=== PATIENT | female | born 1950 | race Caucasian/White ===

== ENCOUNTER 2016-04-20 11:53 | Day surgery (SDC) | payer MEDICARE, BC ==
[~2016-04-20 11:53] MED LIST: Lactated Ringers 1,000 ML IV SCH; Lidocaine 1%/Sod Bicarbonate in NS 8.4% 1 ML Syringe IV PRN; Sodium Chloride 0.9% 10 ML Syringe FLUSH PRN
--- NOTE | 2016-04-20 12:17 | PCM.PREANE ---
Preanesthetic Assessment - ANESTHESIA/TRANSFUSION/FAMILY HX Anesthesia/Transfusion History: No Prior Transfusion(s), Prior Anesthesia (no prob) Family History of Anesthesia Reaction: No - REVIEW OF SYSTEMS Constitutional: Reports: cold symptoms (mild) F[employer]NA[employer]DER: Reports: no symptoms Cardiovascular: Reports: no symptoms GI: Reports: no symptoms Other: Reports: depression, anxiety - PHYSICAL ASSESSMENT HR: 72 O2 Sat by Pulse Oximetry: 94 RR: 20 BP: 132/84 Temp: 98.9 F Height: 5 ft 7 in Weight: 102.058 kg NPO Status Date: 04/20/16 NPO Status Time: 04:00 ASA Class: 2 Mental Status: alert & oriented x3 Airway Class: Mallampati = 1 Dentition: Reports: normal dentition Thyro-Mental Finger Breadths: 3 Mouth Opening Finger Breadths: 3 ROM/Head Extension: full Respiratory Status: lungs clear to auscultation bilaterally Cardiovascular Status: regular rate & rhythm, normal S1, S2, no murmur, blood pressure WNL - ALLERGIES Allergies/Adverse Reactions: Allergies Allergy/AdvReac Type Severity Reaction Status Date / Time amoxicillin Allergy Hives Verified 04/19/16 14:25 cephalexin Allergy Cannot Verified 04/19/16 14:25 Remember ciprofloxacin Allergy Hives Verified 04/19/16 14:25 clavulanic acid Allergy Hives Verified 04/19/16 14:25 influenza virus vaccine, Allergy Other Verified 04/19/16 14:25 specific [influenza virus vacc,specific] penicillin G Allergy Hives Verified 04/19/16 14:25 Sulfa (Sulfonamide Allergy Hives Verified 04/19/16 14:25 Antibiotics) - BLOOD Blood Available: No - ANESTHESIA PLAN Preop Beta Ricardo: No Anesthesia Type Planned: MAC - ACKNOWLEDGEMENTS Pt an appropriate candidate for the planned anesthesia: Yes Alternatives and risks of anesthesia discussed w pt/guardian: Yes Pt/Guardian understands and agree with anesthesia plan: Yes PreAnesthesia Questionnaire Cardiovascular History: Reports: High cholesterol Respiratory History: Reports: Sleep apnea Psychiatric History: Reports: Anxiety, Depression Endocrine/Metabolic History: Reports: Obesity/BMI 30+ - Past Surgical History GI Surgical History: Reports: Colonoscopy Female Surgical History: Reports: section, Hysterectomy Musculoskeletal Surgical History: Reports: Arthroscopic knee, Knee replacement - SUBSTANCE USE Smoking Status *Q: Never Smoker Tobacco Use Within Last Twelve Months: No Second Hand Smoke Exposure: No Days Per Week of Alcohol Use: 0 (once a month) Recreational Drug Use History: No - HOME MEDS Home Medications: Home Meds Ascorbic Acid [Acerola C] 500 mg PO DAILY 04/19/16 [History] Aspirin 81 mg PO DAILY 04/19/16 [History] Cholecalciferol (Vitamin D3) [Vitamin D3] 1,000 unit PO DAILY 04/19/16 [History] Estrogens, Conjugated [Premarin Vaginal Crm] 30 gm TOP ASDIRECTED 04/19/16 [ History] Lactobacillus Reuteri [Biogaia] 1 tab PO DAILY 04/19/16 [History] Meloxicam [Mobic] 15 mg PO DAILY 04/19/16 [History] Multivitamins w-Iron/Ca/FA/Min [Thera M Plus] 1 tab PO DAILY 04/19/16 [History] Vitamin E 1,000 unit PO DAILY 04/19/16 [History] atorvaSTATin [Lipitor] 40 mg PO DAILY 04/19/16 [History] buPROPion [Wellbutrin SR] 150 mg PO DAILY 04/19/16 [History] - CURRENT (IN HOUSE) MEDS Current Meds: Current Medications Lactated Ringer's (Ringers, Lactated) 1,000 mls @ 125 mls/hr IV ASDIRECTED [facility] Stop: 04/20/16 23:00 Lidocaine/Sodium Bicarbonate (Buffered Lidocaine 1% In Ns 8.4%) 0.25 ml IV ONETIME PRN PRN Reason: Prior to IV Start Stop: 04/20/16 18:00 Sodium Chloride (Saline Flush) 10 ml FLUSH ASDIRECTED PRN PRN Reason: Keep Vein Open Stop: 04/20/16 18:00
[2016-04-20] MEDS ORDERED: Propofol 200 MG/20 ML SDV ONE ×2 (14:23→15:41)
[2016-04-20] MEDS ORDERED: Lidocaine 1% 2 ML SDV ONE ×2 (14:24)
--- NOTE | 2016-04-20 15:50 | PCM48HPAN ---
Post Anesthesia Note - EVALUATION WITHIN 48HRS OF ANESTHETIC Vital Signs in Normal Range: Yes Patient Participated in Evaluation: Yes Respiratory Function Stable: Yes Airway Patent: Yes Cardiovascular Function Stable: Yes Hydration Status Stable: Yes Pain Control Satisfactory: Yes Nausea and Vomiting Control Satisfactory: Yes Mental Status Recovered: Yes
--- NOTE | 2016-04-20 15:54 | PCM.OPNOTE ---
- General Post-Op/Procedure Note Date of Surgery/Procedure: 04/20/16 Operative Procedure(s): 1. Screening colonoscopy with cold forceps polypectomy. 2. Hemorrhoidal banding Pre Op Diagnosis: Screening colonoscopy, average risk Post-Op Diagnosis: Splenic flexure colon polyp, Grade 2 internal hemorrhoids Anesthesia Technique: MAC Primary Surgeon: Kari Holbrook Anesthesia Provider: Kailee Watkins Pathology: 1. Splenic flexure colon polyp Fluid Replacement, Intraop: 600 (mL crystalloid ) EBL in mLs: 1 Complications: None Condition: Good Free Text/Narrative:: INDICATION FOR PROCEDURE: The patient is a 66-year-old woman who was referred to me by UMAIR Sanchez for evaluation for colonoscopy. Last colonoscopy was in 2006 and was unremarkable. She is due for average risk screening. She also had some concerns about hemorrhoids. Performing a colonoscopy with possible hemorrhoidal banding and the associated risks of the procedures had been discussed with the patient. The patient found these risks acceptable and agreed to proceed. DESCRIPTION OF PROCEDURE: The patient was taken to the operating room and placed in the left lateral decubitus position. A digital rectal exam was performed which was unremarkable. An adult Olympus colonoscope was inserted into the rectum and guided under direct visualization to the appendiceal orifice and ileocecal valve. The scope was then slowly withdrawn through the colon. The quality of the prep was good. A small polyp was noted at the splenic flexure and was removed using cold forceps biopsy. There was no evidence of angiodysplasias or diverticulum. The scope was withdrawn into the rectum and retroflexed. Grade 2 internal hemorrhoids were noted, hemorrhoidal banding was performed without difficulty after the colonoscopy was completed. The scope was straightened, the colon was desufflated, and the scope was withdrawn. The patient was awakened from sedation and transferred to the recovery room in stable condition having tolerated the procedure well. POSTOPERATIVE PLAN: I discussed with the patient my intraoperative findings and recommendations. The patient will follow up in approximately 7-10 days to discuss pathology and how their symptoms are progressing. She has been told to expect some bleeding for the next week or so. The patient is to call with any worsening of symptoms or questions prior to the appointment.
[2016-04-20 16:29] VITALS: BP 154/69
== END 2016-04-20 16:40 | disposition home or self-care (01) ==
LOC: JD.SDS 11:53
PROVIDERS: ATTEND Surgery
DX: Z12.11 Encounter for screening for malignant neoplasm of colon (principal); K64.8 Other hemorrhoids; K63.5 Polyp of colon; Z88.0 Allergy status to penicillin; Z88.1 Allergy status to other antibiotic agents; Z88.2 Allergy status to sulfonamides; Z88.8 Allergy status to other drugs, medicaments and biological substances; I10 Essential (primary) hypertension; E78.5 Hyperlipidemia, unspecified; M19.90 Unspecified osteoarthritis, unspecified site; F32.9 Major depressive disorder, single episode, unspecified; F41.9 Anxiety disorder, unspecified; G47.30 Sleep apnea, unspecified; Z96.651 Presence of right artificial knee joint; Z79.82 Long term (current) use of aspirin; Z79.899 Other long term (current) drug therapy
CPT/HCPCS: 45380; 45398; 88305; J7120; 00810; J2704

== ENCOUNTER 2017-08-08 10:42 | Day surgery (SDC) | payer MEDICARE, BC ==
[~2017-08-08 10:42] MED LIST changes: +Cefuroxime 10 MG/ML SYRINGE EYERT SCH; -Lactated Ringers 1,000 ML IV SCH; +Lidocaine 1% PF 2 ML SDV INJECT SCH; -Lidocaine 1%/Sod Bicarbonate in NS 8.4% 1 ML Syringe IV PRN; +Pilocarpine 4% Ophth Soln 15 ML Bot EYERT SCH; +Polymyxin B/Trimethoprim 10 ML Bottle EYERT SCH; -Sodium Chloride 0.9% 10 ML Syringe FLUSH PRN
[2017-08-08] MEDS: Tobramycin 0.3% Ophth Drops 5 ML Bottle EYERT SCH ×3 (11:28→13:20)
[2017-08-08] MEDS: Brimonidine 0.2% Ophth Soln 5 ML Bottle EYERT SCH ×3 (11:33→13:20)
[2017-08-08] MEDS: Phenylephrine 2.5% Ophth Soln 2 ML Bot EYERT SCH ×5 (11:38→13:02)
--- NOTE | 2017-08-08 11:38 | PCM.PREANE ---
Preanesthetic Assessment - Procedure Proposed Procedure: cataract right - Anesthesia/Transfusion/Family Hx Anesthesia History: Prior Anesthesia Without Reaction Family History of Anesthesia Reaction: No Transfusion History: No Prior Transfusion(s) - Review of Systems General: No Symptoms Pulmonary: No Symptoms Cardiovascular: No Symptoms Gastrointestinal: Constipation (monday- better now) Neurological: No Symptoms Other: Reports: Depression - Physical Assessment NPO Status Date: 08/07/17 NPO Status Time: 22:00 O2 Sat by Pulse Oximetry: 96 Respiratory Rate: 16 Vital Signs: Last Vital Signs Temp 98.2 F 08/08/17 11:20 Pulse 74 08/08/17 11:20 Resp 16 08/08/17 11:20 BP 147/74 H 08/08/17 11:20 Pulse Ox 96 08/08/17 11:20 Height: 5 ft 7 in Weight: 107.955 kg ASA Class: 2 Mental Status: Alert & Oriented x3 Airway Class: Mallampati = 1 Dentition: Reports: Normal Dentition Thyro-Mental Finger Breadths: 3 Mouth Opening Finger Breadths: 3 ROM/Head Extension: Full Lungs: Clear to Auscultation, Normal Respiratory Effort Cardiovascular: Regular Rate, Regular Rhythm - Allergies Allergies/Adverse Reactions: Allergies Allergy/AdvReac Type Severity Reaction Status Date / Time amoxicillin Allergy Hives Verified 08/07/17 10:26 cephalexin Allergy Cannot Verified 08/07/17 10:26 Remember ciprofloxacin Allergy Hives Verified 08/07/17 10:26 clavulanic acid Allergy Hives Verified 08/07/17 10:26 influenza virus vaccine, Allergy Other Verified 08/07/17 10:26 specific [influenza virus vacc,specific] penicillin G Allergy Hives Verified 08/07/17 10:26 Sulfa (Sulfonamide Allergy Hives Verified 08/07/17 10:26 Antibiotics) - Blood Blood Available: No - Acknowledgements Anesthesia Type Planned: MAC Pt an Appropriate Candidate for the Planned Anesthesia: Yes Alternatives and Risks of Anesthesia Discussed w Pt/Guardian: Yes Pt/Guardian Understands and Agrees with Anesthesia Plan: Yes PreAnesthesia Questionnaire HEENT History: Reports: Impaired Vision Cardiovascular History: Reports: High Cholesterol Respiratory History: Reports: Sleep Apnea Gastrointestinal History: Reports: None Musculoskeletal History: Reports: Arthritis Psychiatric History: Reports: Anxiety, Depression Endocrine/Metabolic History: Reports: Obesity/BMI 30+ Oncologic (Cancer) History: Reports: None - Past Surgical History Female Surgical History: Reports: Section, Hysterectomy Musculoskeletal Surgical History: Reports: Arthroscopic Knee, Knee Replacement - SUBSTANCE USE Smoking Status *Q: Never Smoker Tobacco Use Within Last Twelve Months: No Second Hand Smoke Exposure: No Days Per Week of Alcohol Use: 1 (rare) Recreational Drug Use History: No - HOME MEDS Home Medications: Home Meds Ascorbic Acid [Acerola C] 1,000 mg PO DAILY 04/19/16 [History] Aspirin 81 mg PO DAILY 04/19/16 [History] Cholecalciferol (Vitamin D3) [Vitamin D3] 4,000 unit PO DAILY 04/19/16 [History] Meloxicam [Mobic] 15 mg PO DAILY 04/19/16 [History] Multivitamins w-Iron/Ca/FA/Min [Thera M Plus] 1 tab PO DAILY 04/19/16 [History] atorvaSTATin [Lipitor] 40 mg PO DAILY 04/19/16 [History] buPROPion [Wellbutrin SR] 150 mg PO DAILY 04/19/16 [History] Calcium Carbonate/Vitamin D3 [Calcium 500 + Vit D 400] 1 tab PO DAILY 08/07/17 [ History] Cranberry 400 mg PO DAILY 08/07/17 [History] - CURRENT (IN HOUSE) MEDS Current Meds: Current Medications Brimonidine Tartrate (Alphagan 0.2% Ophth Soln) 0 ml EYERT ASDIRECTED [facility] Stop: 08/08/17 19:00 Cefuroxime Sodium (Zinacef) 0 mg EYERT ASDIRECTED [facility] Stop: 08/08/17 19:00 Lidocaine HCl (Xylocaine-Mpf 1%) 0 ml INJECT ASDIRECTED [facility] Stop: 08/08/17 19:00 Phenylephrine HCl (Marvin-Synephrine 2.5% Ophth Soln) 0 ml EYERT ASDIRECTED [facility] Stop: 08/08/17 19:00 Pilocarpine HCl (Pilocar 4% Ophth Soln) 0 ml EYERT ASDIRECTED [facility] Stop: 08/08/17 19:00 Tetracaine HCl (Tetracaine 0.5% Steri-Unit Archana) 0 ml EYERT ASDIRECTED [facility] Stop: 08/08/17 19:00 Tobramycin (Tobramycin 0.3% Ophth Soln) 0 ml EYERT ASDIRECTED [facility] Stop: 08/08/17 19:00 Last Admin: 08/08/17 11:28 Dose: 1 drop Tropicamide (Mydriacyl 1% Ophth Soln) 0 ml EYERT ASDIRECTED [facility] Stop: 08/08/17 19:00 Discontinued Medications Polymyxin/Trimethoprim Sulfate (Polytrim Ophth Soln) 0 ml EYERT ASDIRECTED [facility]
[2017-08-08] MEDS: Tropicamide 1% Ophth Soln 3 ML Bottle EYERT SCH ×4 (11:47→12:45)
[2017-08-08] MEDS: Tetracaine HCl/PF 0.5% 4 ML Bottle EYERT SCH ×2 (12:55→13:08)
--- NOTE | 2017-08-08 13:22 | PCM48HPAN ---
Post Anesthesia Note - EVALUATION WITHIN 48HRS OF ANESTHETIC Vital Signs in Normal Range: Yes Patient Participated in Evaluation: Yes Respiratory Function Stable: Yes Airway Patent: Yes Cardiovascular Function Stable: Yes Hydration Status Stable: Yes Pain Control Satisfactory: Yes Nausea and Vomiting Control Satisfactory: Yes Mental Status Recovered: Yes Pulse Rate: 74 SaO2: 97 Resp Rate: 16 Temperature: 36 C Blood Pressure: 128/62
[2017-08-08 13:34] VITALS: BP 138/86
== END 2017-08-08 13:31 | disposition home or self-care (01) ==
LOC: JD.SDS 10:42
PROVIDERS: ATTEND Ophthalmology
DX: H25.813 Combined forms of age-related cataract, bilateral (principal); I10 Essential (primary) hypertension; J45.909 Unspecified asthma, uncomplicated; E66.9 Obesity, unspecified; Z68.37 Body mass index [BMI] 37.0-37.9, adult; E78.00 Pure hypercholesterolemia, unspecified; H35.371 Puckering of macula, right eye; H02.834 Dermatochalasis of left upper eyelid; H16.103 Unspecified superficial keratitis, bilateral; F32.9 Major depressive disorder, single episode, unspecified; F41.9 Anxiety disorder, unspecified; Z79.82 Long term (current) use of aspirin; Z79.899 Other long term (current) drug therapy; Z88.0 Allergy status to penicillin; Z88.1 Allergy status to other antibiotic agents; Z88.7 Allergy status to serum and vaccine; Z88.2 Allergy status to sulfonamides
CPT/HCPCS: 66982; A9270; C1780; J2001

== ENCOUNTER 2017-09-07 07:29 | Day surgery (SDC) | payer MEDICARE, BC ==
[~2017-09-07 07:29] MED LIST changes: +Cefuroxime 10 MG/ML SYRINGE EYELF SCH; -Cefuroxime 10 MG/ML SYRINGE EYERT SCH; +Pilocarpine 4% Ophth Soln 15 ML Bot EYELF SCH; -Pilocarpine 4% Ophth Soln 15 ML Bot EYERT SCH; -Polymyxin B/Trimethoprim 10 ML Bottle EYERT SCH
--- NOTE | 2017-09-07 07:50 | PCM.PREANE ---
Preanesthetic Assessment - Anesthesia/Transfusion/Family Hx Anesthesia History: Prior Anesthesia Without Reaction Transfusion History: No Prior Transfusion(s) - Review of Systems General: No Symptoms Pulmonary: No Symptoms (denies) Cardiovascular: No Symptoms, Other (denies) Gastrointestinal: No Symptoms Neurological: No Symptoms Other: Reports: None - Physical Assessment NPO Status Date: 09/06/17 NPO Status Time: 22:30 Pulse: 65 O2 Sat by Pulse Oximetry: 99 Respiratory Rate: 16 Blood Pressure: 147/61 Weight: 106.594 kg ASA Class: 2 Mental Status: Alert & Oriented x3 Dentition: Reports: Normal Dentition, Dentures Thyro-Mental Finger Breadths: 3 Mouth Opening Finger Breadths: 3 ROM/Head Extension: Full Lungs: Clear to Auscultation, Normal Respiratory Effort Cardiovascular: Regular Rate, Regular Rhythm - Allergies Allergies/Adverse Reactions: Allergies Allergy/AdvReac Type Severity Reaction Status Date / Time amoxicillin Allergy Hives Verified 09/06/17 10:02 cephalexin Allergy Cannot Verified 09/06/17 10:02 Remember ciprofloxacin Allergy Hives Verified 09/06/17 10:02 clavulanic acid Allergy Hives Verified 09/06/17 10:02 influenza virus vaccine, Allergy Other Verified 09/06/17 10:02 specific [influenza virus vacc,specific] penicillin G Allergy Hives Verified 09/06/17 10:02 Sulfa (Sulfonamide Allergy Hives Verified 09/06/17 10:02 Antibiotics) - Blood Blood Available: No Product(s) Available: None - Anesthesia Plan Pre-Op Medication Ordered: None - Acknowledgements Anesthesia Type Planned: MAC Pt an Appropriate Candidate for the Planned Anesthesia: Yes Alternatives and Risks of Anesthesia Discussed w Pt/Guardian: Yes Pt/Guardian Understands and Agrees with Anesthesia Plan: Yes PreAnesthesia Questionnaire HEENT History: Reports: Impaired Vision Cardiovascular History: Reports: High Cholesterol Respiratory History: Reports: Sleep Apnea Gastrointestinal History: Reports: None Musculoskeletal History: Reports: Arthritis Psychiatric History: Reports: Anxiety, Depression Endocrine/Metabolic History: Reports: Obesity/BMI 30+ Oncologic (Cancer) History: Reports: None - Past Surgical History Female Surgical History: Reports: Section, Hysterectomy Musculoskeletal Surgical History: Reports: Arthroscopic Knee, Knee Replacement - HOME MEDS Home Medications: Home Meds Ascorbic Acid [Acerola C] 1,000 mg PO DAILY 04/19/16 [History] Aspirin 81 mg PO DAILY 04/19/16 [History] Cholecalciferol (Vitamin D3) [Vitamin D3] 4,000 unit PO DAILY 04/19/16 [History] Meloxicam [Mobic] 15 mg PO DAILY 04/19/16 [History] Multivitamins w-Iron/Ca/FA/Min [Thera M Plus] 1 tab PO DAILY 04/19/16 [History] atorvaSTATin [Lipitor] 40 mg PO DAILY 04/19/16 [History] buPROPion [Wellbutrin SR] 150 mg PO DAILY 04/19/16 [History] Calcium Carbonate/Vitamin D3 [Calcium 500 + Vit D 400] 1 tab PO DAILY 08/07/17 [ History] Cranberry 400 mg PO DAILY 08/07/17 [History] - CURRENT (IN HOUSE) MEDS Current Meds: Current Medications Brimonidine Tartrate (Alphagan 0.2% Ophth Soln) 0 ml EYELF ASDIRECTED [facility] Stop: 09/07/17 18:00 Cefuroxime Sodium (Zinacef) 0 mg EYELF ASDIRECTED [facility] Stop: 09/07/17 18:00 Lidocaine HCl (Xylocaine-Mpf 1%) 0 ml INJECT ASDIRECTED [facility] Stop: 09/07/17 18:00 Phenylephrine HCl (Marvin-Synephrine 2.5% Ophth Soln) 0 ml EYELF ASDIRECTED [facility] Stop: 09/07/17 18:00 Pilocarpine HCl (Pilocar 4% Ophth Soln) 0 ml EYELF ASDIRECTED [facility] Stop: 09/07/17 18:00 Tetracaine HCl (Tetracaine 0.5% Steri-Unit Archana) 0 ml EYELF ASDIRECTED [facility] Stop: 09/07/17 18:00 Tobramycin (Tobramycin 0.3% Ophth Soln) 0 ml EYELF ASDIRECTED [facility] Stop: 09/07/17 18:00 Tropicamide (Mydriacyl 1% Ophth Soln) 0 ml EYELF ASDIRECTED [facility] Stop: 09/07/17 18:00
[2017-09-07] MEDS: Tobramycin 0.3% Ophth Drops 5 ML Bottle EYELF SCH ×3 (08:20→10:15)
[2017-09-07] MEDS: Brimonidine 0.2% Ophth Soln 5 ML Bottle EYELF SCH ×3 (08:26→10:15)
[2017-09-07] MEDS: Phenylephrine 2.5% Ophth Soln 2 ML Bot EYELF SCH ×6 (08:32→09:57)
[2017-09-07] MEDS: Tropicamide 1% Ophth Soln 15 ML Bottle EYELF SCH ×4 (08:37→09:08)
[2017-09-07] MEDS: Tetracaine HCl/PF 0.5% 4 ML Bottle EYELF SCH ×2 (09:45→10:05)
--- NOTE | 2017-09-07 10:17 | PCM48HPAN ---
Post Anesthesia Note - EVALUATION WITHIN 48HRS OF ANESTHETIC Vital Signs in Normal Range: Yes Patient Participated in Evaluation: Yes Respiratory Function Stable: Yes Airway Patent: Yes Cardiovascular Function Stable: Yes Hydration Status Stable: Yes Pain Control Satisfactory: Yes Nausea and Vomiting Control Satisfactory: Yes Mental Status Recovered: Yes Pulse Rate: 561 SaO2: 0 Resp Rate: 16 Temperature: 36.8 C Blood Pressure: 128/65
[2017-09-07 10:29] VITALS: BP 134/76
== END 2017-09-07 10:24 | disposition home or self-care (01) ==
LOC: JD.SDS 07:29
PROVIDERS: ATTEND Ophthalmology
DX: H25.812 Combined forms of age-related cataract, left eye (principal); H35.371 Puckering of macula, right eye; H16.103 Unspecified superficial keratitis, bilateral; H16.223 Keratoconjunctivitis sicca, not specified as Sjogren's, bilateral; H02.834 Dermatochalasis of left upper eyelid; H02.831 Dermatochalasis of right upper eyelid; I10 Essential (primary) hypertension; E78.00 Pure hypercholesterolemia, unspecified; Z79.82 Long term (current) use of aspirin; Z79.899 Other long term (current) drug therapy; Z98.41 Cataract extraction status, right eye; Z96.1 Presence of intraocular lens
CPT/HCPCS: 66984; A9270; C1780; J2001

== ENCOUNTER 2019-06-06 06:15 | Emergency (ER) | payer MEDICARE, BC ==
--- NOTE | 2019-06-06 06:35 | EDM.PDOC ---
<SandstoneMarvin - Last Filed: 06/06/19 06:43> ED HPI GENERAL MEDICAL PROBLEM - General Chief Complaint: General Stated Complaint: [facility] Time Seen by Provider: 06/06/19 06:22 Source of Information: Reports: Patient, EMS History Limitations: Reports: Other (Patient is suboptimal historian.) - History of Present Illness INITIAL COMMENTS - FREE TEXT/NARRATIVE: TRIAGE NOTE -- pt presents with c/o a sore throat and a possible seizure this morning. report recieved that patient had seizure like activity with unresponsiveness and confusion for 15 minutes. upon EMS arrival patient is disorientated and confused, upon arrival to the ER patient is alert and orientated but unsure of preceding events. has some blood around her tongue. As above. Patient's noted her to be confused. No history suggestive of tonic-clonic movements. Patient poorly responsive for period of time perhaps 15 minutes. EMS noted confusion which cleared over the next 10 or 15 minutes. Apparently baseline on arrival to ER. No readily identified risk factors. No history of seizures. No intervention prior to arrival other than supportive care by EMS. Throat Pain Score (Numeric/FACES): 8 - Related Data Allergies Allergy/AdvReac Type Severity Reaction Status Date / Time amoxicillin Allergy Hives Verified 09/06/17 10:02 cephalexin Allergy Cannot Verified 09/06/17 10:02 Remember ciprofloxacin Allergy Hives Verified 09/06/17 10:02 clavulanic acid Allergy Hives Verified 09/06/17 10:02 influenza virus vaccine, Allergy Other Verified 09/06/17 10:02 specific [influenza virus vacc,specific] penicillin G Allergy Hives Verified 09/06/17 10:02 Sulfa (Sulfonamide Allergy Hives Verified 09/06/17 10:02 Antibiotics) Home Meds: Home Meds Ascorbic Acid [Acerola C] 1,000 mg PO DAILY 04/19/16 [History] Aspirin 81 mg PO DAILY 04/19/16 [History] Cholecalciferol (Vitamin D3) [Vitamin D3] 4,000 unit PO DAILY 04/19/16 [History] Multivitamins w-Iron/Ca/FA/Min [Thera M Plus] 1 tab PO DAILY 04/19/16 [History] atorvaSTATin [Lipitor] 40 mg PO DAILY 04/19/16 [History] buPROPion [Wellbutrin SR] 150 mg PO DAILY 04/19/16 [History] Calcium Carbonate/Vitamin D3 [Calcium 500 + Vit D 400] 1 tab PO DAILY 08/07/17 [ History] Cranberry 400 mg PO DAILY 08/07/17 [History] Mirabegron [Myrbetriq] 25 mg PO DAILY 06/06/19 [History] levETIRAcetam [Keppra] 500 mg PO BID #60 tab 06/06/19 [Rx] Past Medical History HEENT History: Reports: Impaired Vision Cardiovascular History: Reports: High Cholesterol Respiratory History: Reports: Sleep Apnea Gastrointestinal History: Reports: None Musculoskeletal History: Reports: Arthritis Psychiatric History: Reports: Anxiety, Depression Endocrine/Metabolic History: Reports: Obesity/BMI 30+ Oncologic (Cancer) History: Reports: None - Past Surgical History Female Surgical History: Reports: Section, Hysterectomy Musculoskeletal Surgical History: Reports: Arthroscopic Knee, Knee Replacement Social & Family History - Tobacco Use Smoking Status *Q: Never Smoker ED ROS GENERAL - Review of Systems Review Of Systems: Comprehensive ROS is negative, except as noted in HPI. ED EXAM, GENERAL - Physical Exam Exam: See Below Exam Limited By: No Limitations General Appearance: Alert, WD/WN, No Apparent Distress Eye Exam: Bilateral Eye: EOMI, PERRL Ears: Normal External Exam Nose: Normal Inspection Throat/Mouth: Normal Voice, Other (Array of apparent small bite rust right side of tongue indeterminate age. Mild erythema of posterior pharynx.) Head: Atraumatic Neck: Normal Inspection, Supple Respiratory/Chest: No Respiratory Distress, Lungs Clear, Normal Breath Sounds Cardiovascular: Regular Rate, Rhythm GI/Abdominal: Soft, Non-Tender Back Exam: Normal Inspection Extremities: Normal Inspection, Non-Tender Neurological: Alert, Oriented, Normal Cognition, No Motor/Sensory Deficits Psychiatric: Normal Affect Skin Exam: Warm, Dry Course - Vital Signs Last Recorded V/S: Last Vital Signs Temp 98.6 F 06/06/19 06:24 Pulse 76 06/06/19 06:24 Resp 16 06/06/19 06:24 BP 138/93 H 06/06/19 06:24 Pulse Ox 99 06/06/19 06:24 - Orders/Labs/Meds Orders: Active Orders 24 hr Category Date Time Status EKG Documentation Completion [RC] STAT Care 06/06/19 06:25 Active CULTURE STREP A CONFIRMATION [RM] Stat Lab 06/06/19 06:47 Results CULTURE URINE [RM] Stat Lab 06/06/19 06:41 Received Rapid Strep w/culture conf [STREP SCRN A RAPID W CULT Lab 06/06/19 06:47 Results CONF] [RM] Stat Sodium Chloride 0.9% [Saline Flush] Med 06/06/19 08:25 Active 10 ml FLUSH ONETIME PRN Sodium Chloride 0.9% [Saline Flush] Med 06/06/19 11:08 Active 10 ml FLUSH ONETIME PRN Medication Orders Sodium Chloride (Saline Flush) 10 ml FLUSH ONETIME PRN PRN Reason: IV FLUSH Last Admin: 06/06/19 08:51 Dose: 10 ml Sodium Chloride (Saline Flush) 10 ml FLUSH ONETIME PRN PRN Reason: Keep Vein Open Last Admin: 06/06/19 12:09 Dose: 10 ml Labs: Laboratory Tests 06/06/19 06/06/19 06/06/19 Range/Units 06:41 06:41 06:54 WBC 7.19 (3.98-10.04) K/mm3 RBC 4.71 (3.98-5.22) M/mm3 Hgb 14.2 (11.2-15.7) gm/dl Hct 45.0 H (34.1-44.9) % MCV 95.5 H (79.4-94.8) fl MCH 30.1 (25.6-32.2) pg MCHC 31.6 L (32.2-35.5) g/dl RDW Std Deviation 44.1 (36.4-46.3) fL Plt Count 246 (182-369) K/mm3 MPV 9.7 (9.4-12.3) fl Neutrophils % (Manual) 72 H (40-60) % Band Neutrophils % 0 (0-10) % Lymphocytes % (Manual) 18 L (20-40) % Atypical Lymphs % 0 % Monocytes % (Manual) 8 (2-10) % Eosinophils % (Manual) 2 (0.7-5.8) % Basophils % (Manual) 0 L (0.1-1.2) Platelet Estimate Adequate RBC Morph Comment Normal Sodium (136-145) mEq/L Potassium (3.5-5.1) mEq/L Chloride (98-107) mEq/L Carbon Dioxide (21-32) mEq/L Anion Gap (5-15) BUN (7-18) mg/dL Creatinine (0.55-1.02) mg/dL Est Cr Clr Drug Dosing Estimated GFR (MDRD) (>60) mL/min BUN/Creatinine Ratio (14-18) Glucose (80-115) mg/dL Calcium (8.5-10.1) mg/dL Magnesium (1.8-2.4) mg/dl Total Bilirubin (0.2-1.0) mg/dL AST (15-37) U/L ALT (14-59) U/L Alkaline Phosphatase (46-116) U/L Troponin I (0.00-0.056) ng/mL C-Reactive Protein (<1.0) mg/dL Total Protein (6.4-8.2) g/dl Albumin (3.4-5.0) g/dl Globulin gm/dL Albumin/Globulin Ratio (1-2) Urine Color Yellow (Yellow) Urine Appearance Clear (Clear) Urine pH 6.0 (5.0-8.0) Ur Specific [place] > or = 1.030 (1.005-1.030) Urine Protein Trace H (Negative) Urine Glucose (UA) Negative (Negative) Urine Ketones Negative (Negative) Urine Occult Blood Negative (Negative) Urine Nitrite Negative (Negative) Urine Bilirubin Negative (Negative) Urine Urobilinogen 0.2 (0.2-1.0) Ur Leukocyte Esterase 1+ H (Negative) Urine RBC 0-5 (0-5) /hpf Urine WBC 5-10 H (0-5) /hpf Ur Squamous Epith Cells 0-5 (0-5) /hpf Urine Bacteria Few (FEW) /hpf Urine Mucus Not seen (FEW) /hpf Urine Opiates Screen Negative (HOXKQY=305) Ur Buprenorphine Scrn Negative (CUTOFF=10) Ur Oxycodone Screen Negative (FLU5JQ=848) Urine Methadone Screen Negative (COTQIQ=978) Ur Propoxyphene Screen Negative (CDXGVJ=995) Ur Barbiturates Screen Negative (ORKGWG=823) Ur Tricyclics Screen Negative (SVOBMZ=912) Ur Phencyclidine Scrn Negative (CUTOFF=25) Ur Amphetamine Screen Negative (UFZFUT=817) U Methamphetamines Scrn Negative (TIFWAO=028) U Benzodiazepines Scrn Negative (IMDJNY=175) U Cocaine Metab Screen Negative (SMUNQN=880) U Marijuana (THC) Screen Negative (CUTOFF=50) Ethyl Alcohol (0.00) gm% 06/06/19 Range/Units 06:54 WBC (3.98-10.04) K/mm3 RBC (3.98-5.22) M/mm3 Hgb (11.2-15.7) gm/dl Hct (34.1-44.9) % MCV (79.4-94.8) fl MCH (25.6-32.2) pg MCHC (32.2-35.5) g/dl RDW Std Deviation (36.4-46.3) fL Plt Count (182-369) K/mm3 MPV (9.4-12.3) fl Neutrophils % (Manual) (40-60) % Band Neutrophils % (0-10) % Lymphocytes % (Manual) (20-40) % Atypical Lymphs % % Monocytes % (Manual) (2-10) % Eosinophils % (Manual) (0.7-5.8) % Basophils % (Manual) (0.1-1.2) Platelet Estimate RBC Morph Comment Sodium 144 (136-145) mEq/L Potassium 3.9 (3.5-5.1) mEq/L Chloride 106 (98-107) mEq/L Carbon Dioxide 29 (21-32) mEq/L Anion Gap 12.9 (5-15) BUN 23 H (7-18) mg/dL Creatinine 0.9 (0.55-1.02) mg/dL Est Cr Clr Drug Dosing TNP Estimated GFR (MDRD) > 60 (>60) mL/min BUN/Creatinine Ratio 25.6 H (14-18) Glucose 95 (80-115) mg/dL Calcium 9.6 (8.5-10.1) mg/dL Magnesium 2.1 (1.8-2.4) mg/dl Total Bilirubin 0.5 (0.2-1.0) mg/dL AST 21 (15-37) U/L ALT 21 (14-59) U/L Alkaline Phosphatase 88 (46-116) U/L Troponin I < 0.017 (0.00-0.056) ng/mL C-Reactive Protein <0.2 (<1.0) mg/dL Total Protein 7.4 (6.4-8.2) g/dl Albumin 3.7 (3.4-5.0) g/dl Globulin 3.7 gm/dL Albumin/Globulin Ratio 1.0 (1-2) Urine Color (Yellow) Urine Appearance (Clear) Urine pH (5.0-8.0) Ur Specific [place] (1.005-1.030) Urine Protein (Negative) Urine Glucose (UA) (Negative) Urine Ketones (Negative) Urine Occult Blood (Negative) Urine Nitrite (Negative) Urine Bilirubin (Negative) Urine Urobilinogen (0.2-1.0) Ur Leukocyte Esterase (Negative) Urine RBC (0-5) /hpf Urine WBC (0-5) /hpf Ur Squamous Epith Cells (0-5) /hpf Urine Bacteria (FEW) /hpf Urine Mucus (FEW) /hpf Urine Opiates Screen (NRHIVR=141) Ur Buprenorphine Scrn (CUTOFF=10) Ur Oxycodone Screen (GFU3ZI=070) Urine Methadone Screen (MVOAJI=899) Ur Propoxyphene Screen (KSTYOI=308) Ur Barbiturates Screen (SQSREU=228) Ur Tricyclics Screen (FKTUKJ=093) Ur Phencyclidine Scrn (CUTOFF=25) Ur Amphetamine Screen (MMYUEO=847) U Methamphetamines Scrn (AJMLXT=825) U Benzodiazepines Scrn (BEHLLN=959) U Cocaine Metab Screen (IZXUUY=549) U Marijuana (THC) Screen (CUTOFF=50) Ethyl Alcohol 0.01 (0.00) gm% Meds: Medications Generic Name Dose Route Start Last Admin Trade Name Freq PRN Reason Stop Dose Admin Sodium Chloride 10 ml 06/06/19 08:25 06/06/19 08:51 Saline Flush FLUSH 10 ml ONETIME PRN Administration IV FLUSH Sodium Chloride 10 ml 06/06/19 11:08 06/06/19 12:09 Saline Flush FLUSH 10 ml ONETIME PRN Administration Keep Vein Open Discontinued Medications Generic Name Dose Route Start Last Admin Trade Name Freq PRN Reason Stop Dose Admin Gadobenate Dimeglumine 19 ml 06/06/19 11:08 06/06/19 12:09 Multihance IVPUSH 06/06/19 11:09 19 ml ONETIME ONE Administration Levetiracetam 2,000 mg/ Sodium 120 mls @ 400 mls/hr 06/06/19 10:52 06/06/19 12:29 Chloride IV 06/06/19 11:06 400 mls/hr ONETIME ONE Administration Iopamidol 100 ml 06/06/19 08:25 06/06/19 08:51 Isovue-300 (61%) IVPUSH 06/06/19 08:26 100 ml ONETIME ONE Administration Methylprednisolone Sodium Succinate 125 mg 06/06/19 10:27 06/06/19 12:27 Solu-Medrol IVPUSH 06/06/19 10:28 125 mg ONETIME ONE Administration Departure - Departure Time of Disposition: 07:00 Disposition: Home, Self-Care 01 Clinical Impression: New onset seizure, Sore throat Abrasion of tongue Qualifiers: Encounter type: initial encounter Qualified Code(s): S00.512A - Abrasion of oral cavity, initial encounter - Discharge Information Prescriptions: levETIRAcetam [Keppra] 500 mg PO BID #60 tab Referrals: Heather Bradford, MANAGER OF HOUSEKEEPING [Primary Care Provider] - 1 Week Forms: ED Department Discharge Additional Instructions: Take your medication as prescribed. Take the keppra 2 times per day. Someone from [facility] will call you within the next 48 hours. Take tylenol or motrin for any pain. Follow up with Heather within a week. Please return if you are worse. Sepsis Event Note - Evaluation Sepsis Screening Result: No Definite Risk - Focused Exam Vital Signs: Vital Signs Temp Pulse Resp BP Pulse Ox 06/06/19 06:24 98.6 F 76 16 138/93 H 99 Date Exam was Performed: 06/06/19 Time Exam was Performed: 06:43 - My Orders Last 24 Hours: My Active Orders 06/06/19 11:08 Sodium Chloride 0.9% [Saline Flush] 10 ml FLUSH ONETIME PRN - Assessment/Plan Last 24 Hours: My Active Orders 06/06/19 11:08 Sodium Chloride 0.9% [Saline Flush] 10 ml FLUSH ONETIME PRN <Remington Gracia - Last Filed: 06/06/19 12:56> Course - Re-Assessments/Exams Free Text/Narrative Re-Assessment/Exam: 06/06/19 08:[address] Martinez. Her CXR looks good. Her EKG shows a NSR with no acute changes. Her CT shows continued Arnold-chiari 1 malformation which is noted on prior brain MRI. No acute intracranial abnormality is identified. Her CBC and CMP look good. Her troponin is negative. Her CRP is negative. Her ETOH is 0.01. Her strep is negative. She does have the start of a UTI. She still has a bad sore throat and there is some redness and swelling to the right pharynx. I have ordered a CT of the soft tissue of the neck. 06/06/19 11:[address] shows mild soft tissue swelling within the right parapharyngeal soft tissues. No abscess is seen. Small retention cyst within the right maxillary sinus with mild mucosal thickening seen within the ethmoid sinuses. Degenerative change is scattered within the cervical spine. I called her and he confirmed the story of the possible seizure. He also said she had an unresponsive episode a couple days ago. She would not respond for about 5 minutes. He said about 5 years ago she had episodes where she would not respond and she also had generalized weakness and confusion she was seen here, [facility] and finally [facility] and they found she had a CSF leak and sagging brain. They did a blood patch and she is much better and is back to normal. He also said one of her symptoms 5 years ago was a sore throat. I called [facility] and talked with Dr Siddiqui the neurologist business continuity director and he recommended and MRI with contrast of her brain and keppra 2 grams IV and then 500mg BID. He did not feel she needed transfer there but someone from their office will call the patient within 24 to 48 hours. They do have a CSF leak specialist and he will review her case. I called her to let him know. 06/06/19 12:51 The MRI here showed Arnold-chiari 1 malformation. This is similar to prior MRI from 1014. MRI study of the brain is otherwise unremarkable. I will discharge her home with the keppra prescription. Departure - Discharge Information *PRESCRIPTION DRUG MONITORING PROGRAM REVIEWED*: Not Applicable *COPY OF PRESCRIPTION DRUG MONITORING REPORT IN PATIENT BIANKA: Not Applicable Sepsis Event Note - Focused Exam Date Exam was Performed: 06/06/19 Time Exam was Performed: 12:51
--- NOTE | 2019-06-06 07:06 | CT ---
Head CT Technique: Multiple axial sections through the brain were obtained. Intravenous contrast was not utilized. Comparison: Prior MRI brain dated 09/17/14. Findings: Ventricles along with basal cisterns and sulci over the convexities are within normal limits for the patient's age. Soft tissue seen within the foramen magnum compatible with Arnold-Chiari 1 malformation which is seen on prior MRI. No abnormal parenchymal densities are seen. No evidence of intracranial hemorrhage. No midline shift or mass-effect is appreciated. Bone window settings were reviewed. No acute calvarial abnormality is appreciated. Visualized paranasal sinuses and mastoid sinuses show nothing acute. Impression: 1. Continued Arnold-Chiari 1 malformation which is noted on prior brain MRI. 2. No acute intracranial abnormality is identified. Diagnostic code #3 This report was dictated in MDT
--- NOTE | 2019-06-06 08:23 | CR ---
Chest: Frontal view of the chest was obtained. Comparison: No prior chest x-ray is available. Heart size at the upper limits of normal. Upper mediastinum is normal. Lungs are clear with no acute parenchymal change. Bony structures are grossly intact. Impression: 1. Nothing acute is seen on frontal chest x-ray. Diagnostic code #2 This report was dictated in MDT
[2019-06-06] MEDS ORDERED: Sodium Chloride 0.9% 10 ML Syringe FLUSH PRN ×2 (08:25→11:08)
[2019-06-06] MEDS ORDERED: Iopamidol 612 MG/ML 100 ML Bottle IVPUSH ONE (08:25)
--- NOTE | 2019-06-06 09:12 | CT ---
CT neck Technique: Multiple axial sections through the neck were obtained. Intravenous contrast was utilized. Reconstructed coronal and sagittal images were obtained. Findings: No parapharyngeal abscess is seen. Epiglottis appears within normal limits. Prevertebral soft tissues are normal. Parotid salivary glands and submandibular salivary glands appear within normal limits. No adenopathy is seen within the neck. Slight soft tissue swelling is noted within the right parapharyngeal soft tissues. Bone window settings were reviewed which shows diffuse degenerative change within the cervical spine. No acute osseous finding is seen. Small retention cyst is seen inferiorly within the right maxillary sinus. Mild areas of mucosal thickening is seen within the ethmoid sinuses. Mastoid sinuses are clear. Impression: 1. Mild soft tissue swelling within the right parapharyngeal soft tissues. No abscess is seen. 2. Small retention cyst within the right maxillary sinus with mild mucosal thickening seen within the ethmoid sinuses. 3. Degenerative change is scattered within the cervical spine. Diagnostic code #2 Study was dictated in MDT
[2019-06-06] MEDS ORDERED: methylPREDNISolone Sodium Succinate 125 MG/2 ML SDV IVPUSH ONE (10:27)
[2019-06-06] MEDS ORDERED: levETIRAcetam 2,000 MG in Sodium Chloride 0.9% 100 ML IV ONE (10:52)
[2019-06-06] MEDS ORDERED: Gadobenate Dimeglumine 529 MG/ML 20 ML SDV IVPUSH ONE (11:08)
--- NOTE | 2019-06-06 12:20 | MR ---
MRI brain (without and with intravenous contrast) Technique: T1 sagittal; T2, T1, diffusion and T1 postcontrast axial; T1 FLAIR, T2, T1 and T1 postcontrast coronal; T1 sagittal images were obtained. Comparison: Prior head CT study performed on the same day (6:33 AM). Previous MRI brain of 09/17/14 is also available. Findings: Ventricles along with basal cisterns and sulci over the convexities are within normal limits. Descent of the cerebellar tonsils is seen below the foramen magnum by approximately 7.5 cm which is compatible with an Arnold-Chiari 1 malformation. Normal signal void is seen within the major cerebral arteries within the skull base. No abnormal signal is seen within the brain parenchyma. No acute diffusion abnormalities are appreciated. No areas of abnormal enhancement are seen. Paranasal sinuses are clear. Impression: 1. Arnold-Chiari 1 malformation. This is similar to prior MRI from 2015. 2. MRI study of the brain is otherwise unremarkable. Diagnostic code #3 Study was dictated in MDT
[2019-06-06 12:58] VITALS: BP 134/60; PULSE 66
== END 2019-06-06 13:05 | disposition home or self-care (01) ==
LOC: JD.ED 06:15
DX: J02.9 Acute pharyngitis, unspecified (principal); R56.9 Unspecified convulsions; S00.512A Abrasion of oral cavity, initial encounter; F32.9 Major depressive disorder, single episode, unspecified; E78.00 Pure hypercholesterolemia, unspecified; Z79.82 Long term (current) use of aspirin; Z79.899 Other long term (current) drug therapy; E66.9 Obesity, unspecified; Z88.1 Allergy status to other antibiotic agents; Z88.0 Allergy status to penicillin; Z88.2 Allergy status to sulfonamides; X58.XXXA Exposure to other specified factors, initial encounter
CPT/HCPCS: 36415; 70450; 70491; 70553; 71045; 80053; 80306; 80307; 81001; 83735; 84484; 85007; 85027; 86140; 87081; 87086; 87088; 87186; 87430; 93005; 96365; 96375; 99285; A9577; J1953; J2930; J7050; Q9967; 99284

== ENCOUNTER → 2021-09-23 | Day surgery (SDC) | payer MEDICARE, BC ==
[~2021-09-23] MED LIST changes: +Acetaminophen 325 MG Tab PO SCH; -Cefuroxime 10 MG/ML SYRINGE EYELF SCH; +EPINEPHrine 1 MG/ML SDV ONE; +HYDROmorphone 0.5 MG/0.5 ML Syringe IVPUSH PRN; +Lactated Ringers 1,000 ML IV SCH; +Lidocaine 1% 2 ML ONE; -Lidocaine 1% PF 2 ML SDV INJECT SCH; +Lidocaine 1%/Sod Bicarbonate in NS 8.4% 1 ML Syringe IDERM PRN; +Midazolam 1 MG/ML 2 ML SDV ONE; +Morphine 8 MG, EPINEPHrine 0.3 MG, Ketorolac 30 MG, Sodium Chloride 0.9% 17.9 ML PRN; +Ondansetron 4 MG/2 ML SDV IVPUSH PRN; +Phenylephrine HCl In 0.9% NaCl 1 MG/10 ML Vial ONE; -Pilocarpine 4% Ophth Soln 15 ML Bot EYELF SCH; +Pregabalin 25 MG Cap PO SCH; +Propofol 200 MG/20 ML SDV ONE; +Ropivacaine 0.5% 5 MG/ML 30 ML SDV ONE; +Sodium Chloride 0.9% 10 ML Syringe FLUSH PRN; +Sodium Chloride 0.9% 10 ML Syringe FLUSH SCH; +VANCOmycin 1.5 GM/300 ML 1.5 GM in Premix Bag 1 BAG IV ONE; +Vancomycin 1 GM SDV ONE; +Vancomycin 1.75 GM in Sodium Chloride 0.9% 500 ML IV ONE; +fentaNYL 100 MCG/2 ML SDV IVPUSH PRN; +fentaNYL 100 MCG/2 ML SDV ONE; +oxyCODONE 5 MG Tab PO STA; +oxyCODONE ER 10 MG TAB.ER PO SCH
[2021-09-23 13:34] VITALS: BP 143/71; PULSE 53
== END | disposition home or self-care (01) ==
LOC: JD.SDS 05:58
PROVIDERS: ATTEND Orthopaedic Surgery
DX: M17.12 Unilateral primary osteoarthritis, left knee (principal); I10 Essential (primary) hypertension; E78.00 Pure hypercholesterolemia, unspecified; F41.9 Anxiety disorder, unspecified; F32.A Depression, unspecified; E66.9 Obesity, unspecified; R56.9 Unspecified convulsions; I25.10 Atherosclerotic heart disease of native coronary artery without angina pectoris; Z68.32 Body mass index [BMI] 32.0-32.9, adult; Z88.0 Allergy status to penicillin; Z88.1 Allergy status to other antibiotic agents; Z88.2 Allergy status to sulfonamides; Z90.710 Acquired absence of both cervix and uterus; Z79.02 Long term (current) use of antithrombotics/antiplatelets; Z79.899 Other long term (current) drug therapy; Z79.82 Long term (current) use of aspirin
CPT/HCPCS: 0055T; 27447; 64447; 73560; 97162; 97530; A9270; C1713; C1776; J0171; J1885; J2250; J2270; J2704; J2795; J3010; J3370; J7120; 01402; 64450; 76942; 99100